=== PATIENT | male | born 1955 | race Caucasian/White ===

== ENCOUNTER 2018-05-22 16:31 | Inpatient (IN) | payer MEDICAID ==
[~2018-05-22] VITALS: Ht 182.9 cm; Wt 55.0 kg
[2018-05-22] MEDS ORDERED: SERT100T10 PO (17:20)
[2018-05-22] MEDS ORDERED: LEVE500T PO (17:21)
[2018-05-22] MEDS ORDERED: OLAN10TA3 PO (17:24)
[2018-05-22] MEDS ORDERED: ondansetron/PF 4mg/2ml inj IV ONE (17:55)
[2018-05-22 18:14] LABS: BASOPHILS # (AUTO) 0.1 X10'3 (0-0.2); BASOPHILS % (AUTO) 0.3 % (0-1); EOSINOPHILS % (AUTO) 0 % (0-6); LYMPHOCYTES # (AUTO) 0.5 X10'3 (1.1-4.8); LYMPHOCYTES % (AUTO) 2.9 % (21-51); MEAN CORPUSCULAR HEMOGLOBIN 31.3 PG (27.0-31.0); MEAN CORPUSCULAR HGB CONC 34.1 % (33.0-36.5); MEAN CORPUSCULAR VOLUME 91.7 FL (78-98); MEAN PLATELET VOLUME 8.1 FL (7.4-10.4); MONOCYTES # (AUTO) 0.8 X10'3 (0-0.9); NEUTROPHILS # (AUTO) 15.6 X10'3 (1.8-7.7); NEUTROPHILS % (AUTO) 91.8 % (42-75); PLATELET COUNT 201 X10'3 (140-440); RED BLOOD COUNT 4.47 X10'6 (4.70-6.10); RED CELL DISTRIBUTION WIDTH 12.9 % (11.5-14.5)
[2018-05-22 18:28] LABS: ALANINE AMINOTRANSFERASE 26 U/L (12-78); ALBUMIN/GLOBULIN RATIO 0.8 (1.1-1.5); ALKALINE PHOSPHATASE 175 IU/L (46-116); ANION GAP 8 (8-16); ASPARTATE AMINO TRANSFERASE 16 U/L (10-37); BILIRUBIN,TOTAL 0.7 MG/DL (0.1-1.0); BLOOD UREA NITROGEN 14 MG/DL (7-18); BUN/CREATININE RATIO 17.1 (5.4-32.0); CALCIUM 8.7 MG/DL (8.5-10.1); CHLORIDE 102 MMOL/L (99-107); CREATININE 0.82 MG/DL (0.60-1.10); GLUCOSE 125 MG/DL (70-104); POTASSIUM 3.8 MMOL/L (3.5-5.1); SODIUM 137 MMOL/L (135-145); eGFR > 90 ML/MIN
[2018-05-22] MEDS: morphine 4 MG/ML inj SYRINge IV PRN ×2 (18:28→19:16)
[2018-05-22] MEDS ORDERED: normal saline 1000ML IV soln IV ONE (18:55)
[2018-05-22] MEDS ORDERED: HYDROmorphone 1 mg/ml syringe IV ONE (19:10)
[2018-05-22] MEDS: sertraline 50mg tablet PO SCH (20:21)
[2018-05-22] MEDS: levetiracetam 250mg tablet PO SCH (20:21)
[2018-05-22] MEDS ORDERED: HYDROmorphone inj. 0.5 MG/0.5 ML DISP.SYRIN IV PRN ×2 (20:30)
[2018-05-22] MEDS ORDERED: mag hydrox/Alum hydrox/simeth 30ml oral suspension PO PRN (20:30)
[2018-05-22] MEDS ORDERED: metoclopramide 5 mg/ml inj IV PRN (20:30)
[2018-05-22] MEDS: pantoprazole 40 MG vial IV SCH (20:30)
[2018-05-22] MEDS ORDERED: acetaminophen 650mg rectal suppository RC PRN (20:30)
[2018-05-22] MEDS ORDERED: ondansetron/PF 4mg/2ml inj IV PRN (20:30)
[2018-05-22] MEDS ORDERED: diphenhydrAMINE 25mg capsule PO PRN (20:30)
[2018-05-22] MEDS ORDERED: diphenhydrAMINE 50 mg/ml inj IV PRN (20:30)
[2018-05-22] MEDS ORDERED: HYDROcodone/acetaminophen 5mg/325mg tablet PO PRN ×2 (20:30→20:50)
[2018-05-22] MEDS ORDERED: acetaminophen 325mg tablet PO PRN ×2 (20:30)
[2018-05-22] MEDS ORDERED: magnesium hydroxide 30ml (MOM) UD suspension PO PRN (20:30)
[2018-05-22] MEDS ORDERED: morphine 4 MG/ML inj SYRINge IV PRN (20:30)
[2018-05-22] MEDS ORDERED: bisacodyl 10mg suppository rectal RC PRN (20:30)
[2018-05-22 22:30] VITALS: BP 130/74
[2018-05-22] MEDS: normal saline 1000ml 1,000 ML IV SCH (23:27)
[2018-05-23 06:00] VITALS: BP 131/78
[2018-05-23 07:15] LABS: BASOPHILS # (AUTO) 0.1 X10'3 (0-0.2); BASOPHILS % (AUTO) 0.5 % (0-1); EOSINOPHILS % (AUTO) 0.1 % (0-6); HEMATOCRIT 36.6 % (42.0-52.0); HEMOGLOBIN 12.2 g/dl (14.0-17.9); LYMPHOCYTES # (AUTO) 0.9 X10'3 (1.1-4.8); LYMPHOCYTES % (AUTO) 6.6 % (21-51); MEAN CORPUSCULAR HEMOGLOBIN 30.8 PG (27.0-31.0); MEAN CORPUSCULAR HGB CONC 33.4 % (33.0-36.5); MEAN CORPUSCULAR VOLUME 92.3 FL (78-98); MONOCYTES % (AUTO) 7.7 % (2-12); NEUTROPHILS # (AUTO) 11.2 X10'3 (1.8-7.7); NEUTROPHILS % (AUTO) 85.1 % (42-75); PLATELET COUNT 196 X10'3 (140-440); RED BLOOD COUNT 3.97 X10'6 (4.70-6.10); RED CELL DISTRIBUTION WIDTH 13.2 % (11.5-14.5); WHITE BLOOD COUNT 13.2 X10'3 (4.5-11.0)
[2018-05-23 07:34] LABS: ALANINE AMINOTRANSFERASE 21 U/L (12-78); ALBUMIN 2.5 G/DL (3.4-5.0); ALBUMIN/GLOBULIN RATIO 0.7 (1.1-1.5); ALKALINE PHOSPHATASE 150 IU/L (46-116); ANION GAP 11 (8-16); ASPARTATE AMINO TRANSFERASE 13 U/L (10-37); BILIRUBIN,TOTAL 0.8 MG/DL (0.1-1.0); BLOOD UREA NITROGEN 12 MG/DL (7-18); CALCIUM 8.2 MG/DL (8.5-10.1); CHLORIDE 106 MMOL/L (99-107); GLUCOSE 106 MG/DL (70-104); POTASSIUM 3.8 MMOL/L (3.5-5.1); SODIUM 140 MMOL/L (135-145); TOTAL CARBON DIOXIDE 23.5 MMOL/L (24-32); TOTAL PROTEIN 6.2 G/DL (6.4-8.2); eGFR > 90 ML/MIN
[2018-05-23] MEDS: levetiracetam 250mg tablet PO SCH ×2 (07:44→20:04)
[2018-05-23] MEDS: pantoprazole 40 MG vial IV SCH (07:44)
[2018-05-23] MEDS: olanzapine 10mg tablet PO SCH (07:44)
[2018-05-23] MEDS: docusate sod 100mg capsule PO SCH ×2 (08:00→20:04)
[2018-05-23] MEDS: normal saline 1000ml 1,000 ML IV SCH ×3 (09:31→20:04)
[2018-05-23] MEDS: morphine 4 MG/ML inj SYRINge IV PRN (09:44)
[2018-05-23 10:00] VITALS: BP 124/69
[2018-05-23] MEDS ORDERED: LORazepam 2 mg/ml vial IV PRN (12:55)
[2018-05-23] MEDS ORDERED: ringers solution, lacted 1,000 ML IV SCH (16:04)
[2018-05-23] MEDS ORDERED: proCHLORperazine 10 MG/2 ml inj IV PRN (16:05)
[2018-05-23] MEDS ORDERED: morphine 4 MG/ML inj SYRINge IV PRN ×2 (16:05)
[2018-05-23] MEDS ORDERED: meperidine/PF 25mg/ml syringe IV PRN ×3 (16:05)
[2018-05-23] MEDS ORDERED: ondansetron/PF 4mg/2ml inj IV PRN (16:05)
[2018-05-23] MEDS: VANCOMYCIN 750MG IV in NS 250 ML IV SCH (16:18)
[2018-05-23 18:00] VITALS: BP 137/78
[2018-05-23 19:05] LABS: CLARITY,URINE CLEAR (Clear); COLOR,URINE YELLOW (Yellow); GLUCOSE, URINE NEGATIVE (Neg); KETONES,URINE >=80 mg/dl (Neg); LEUKOCYTE ESTERASE ,URINE NEGATIVE (Neg); NITRITES, URINE NEGATIVE (Neg); OCCULT BLOOD,URINE SMALL (Neg); PROTEIN,URINE TRACE mg/dl (Neg)
[2018-05-23 19:13] LABS: UA COLLECTION TYPE FOLEY CATH
[2018-05-23 19:17] LABS: BACTERIA,URINE FEW /HPF (Neg); MUCUS STRANDS FEW /LPF (Neg); SQUAMOUS EPITHELIAL CELL,UR FEW /LPF (FEW)
[2018-05-23] MEDS: piperacillin/tazo 3.375gm/50ml 50 ML IV SCH (20:03)
[2018-05-23] MEDS: tamsulosin 0.4mg capsule PO SCH (20:04)
[2018-05-23] MEDS: sertraline 50mg tablet PO SCH (20:04)
[2018-05-23 22:00] VITALS: BP 114/67
[2018-05-24] VITALS (18 sets, daily range): BP systolic 83–135; BP diastolic 44–80
[2018-05-24] MEDS: piperacillin/tazo 3.375gm/50ml 50 ML IV SCH ×4 (01:32→19:25)
[2018-05-24] MEDS: HYDROcodone/acetaminophen 10/325mg tab PO PRN (01:35)
[2018-05-24] MEDS: morphine 4 MG/ML inj SYRINge IV PRN ×2 (02:23→23:00)
[2018-05-24] MEDS: VANCOMYCIN 750MG IV in NS 250 ML IV SCH ×2 (03:44→16:00)
[2018-05-24 05:46] LABS: BASOPHILS # (AUTO) 0.1 X10'3 (0-0.2); BASOPHILS % (AUTO) 0.8 % (0-1); EOSINOPHILS % (AUTO) 0.2 % (0-6); HEMATOCRIT 33.1 % (42.0-52.0); HEMOGLOBIN 11.3 g/dl (14.0-17.9); LYMPHOCYTES # (AUTO) 1.3 X10'3 (1.1-4.8); LYMPHOCYTES % (AUTO) 9.9 % (21-51); MEAN CORPUSCULAR HEMOGLOBIN 31.1 PG (27.0-31.0); MEAN CORPUSCULAR HGB CONC 34.2 % (33.0-36.5); MEAN CORPUSCULAR VOLUME 90.8 FL (78-98); MEAN PLATELET VOLUME 8.3 FL (7.4-10.4); MONOCYTES # (AUTO) 1.1 X10'3 (0-0.9); MONOCYTES % (AUTO) 8.3 % (2-12); NEUTROPHILS # (AUTO) 10.9 X10'3 (1.8-7.7); NEUTROPHILS % (AUTO) 80.8 % (42-75); PLATELET COUNT 170 X10'3 (140-440); RED BLOOD COUNT 3.65 X10'6 (4.70-6.10); RED CELL DISTRIBUTION WIDTH 12.8 % (11.5-14.5); WHITE BLOOD COUNT 13.5 X10'3 (4.5-11.0)
[2018-05-24 06:04] LABS: ALANINE AMINOTRANSFERASE 22 U/L (12-78); ALBUMIN 2.1 G/DL (3.4-5.0); ALBUMIN/GLOBULIN RATIO 0.6 (1.1-1.5); ALKALINE PHOSPHATASE 231 IU/L (46-116); ANION GAP 12 (8-16); ASPARTATE AMINO TRANSFERASE 25 U/L (10-37); BLOOD UREA NITROGEN 6 MG/DL (7-18); BUN/CREATININE RATIO 9.5 (5.4-32.0); CALCIUM 8.2 MG/DL (8.5-10.1); CHLORIDE 104 MMOL/L (99-107); CREATININE 0.63 MG/DL (0.60-1.10); GLUCOSE 115 MG/DL (70-104); POTASSIUM 3.4 MMOL/L (3.5-5.1); SODIUM 138 MMOL/L (135-145); TOTAL CARBON DIOXIDE 22.5 MMOL/L (24-32); TOTAL PROTEIN 5.7 G/DL (6.4-8.2); eGFR > 90 ML/MIN
[2018-05-24] MEDS: docusate sod 100mg capsule PO SCH ×2 (08:00→22:59)
[2018-05-24] MEDS: pantoprazole 40 MG vial IV SCH (08:26)
[2018-05-24] MEDS: olanzapine 10mg tablet PO SCH (08:27)
[2018-05-24] MEDS: levetiracetam 250mg tablet PO SCH ×2 (08:30→22:59)
[2018-05-24] MEDS ORDERED: potassium Cl 20 mEq SR tablet PO PRN (11:10)
[2018-05-24] MEDS ORDERED: magnesium 1gm/100ml D5W IVPB 100 ML IV PRN (11:10)
[2018-05-24] MEDS ORDERED: potassium Cl 40MEQ/NS 500ml 500 ML IV PRN ×2 (11:10)
[2018-05-24] MEDS ORDERED: magnesium Cl slow-release 64mg tablet PO PRN (11:10)
[2018-05-24] MEDS ORDERED: magnesium 4gm in 100ml NS 100 ML IV PRN (11:10)
[2018-05-24] MEDS: normal saline 1000ml 1,000 ML IV SCH (11:45)
[2018-05-24 13:07] LABS: MAGNESIUM 1.9 MG/DL (1.5-2.4); POTASSIUM 3.2 MMOL/L (3.5-5.1)
[2018-05-24] MEDS ORDERED: midazolam 2 mg/2 ml injection ONE (15:56)
[2018-05-24] MEDS ORDERED: fentaNYL /PF 50mcg/ml 5ml ampule ONE (15:56)
[2018-05-24] MEDS ORDERED: LIDOcaine 2% (20mg/ml) 5ml vial ONE (15:57)
[2018-05-24] MEDS ORDERED: propofol inj 20 ML IV ONE (15:57)
[2018-05-24] MEDS ORDERED: rocuronium 10mg/ml inj IV ONE (15:57)
[2018-05-24] MEDS ORDERED: metoprolol tartrate 1mg/ml inj IV ONE (16:00)
[2018-05-24] MEDS ORDERED: sevoflurane 250ml liquid IH ONE (16:00)
[2018-05-24] MEDS ORDERED: fentaNYL/PF 50MCG/1 ML 2ML syringe ONE (17:38)
[2018-05-24] MEDS ORDERED: ondansetron/PF 4mg/2ml inj ONE (18:11)
[2018-05-24] MEDS ORDERED: morphine 10mg/ml inj. ONE (18:16)
[2018-05-24] MEDS ORDERED: albumin (Human) 5% 250ml 250 ML IV ONE (18:56)
[2018-05-24] MEDS ORDERED: neostigmine methylsulfate 1 MG/ML 10ml vial ONE (19:11)
[2018-05-24] MEDS ORDERED: glycopyrrolate 0.2mg/ml inj ONE (19:11)
[2018-05-24 19:15] LABS: ISTAT ANION GAP 13 (8-12); ISTAT BUN 4 mg/dL (6-19); ISTAT CL 104 mmol/L (99-107); ISTAT CREATININE 0.4 mg/dL (0.8-1.3); ISTAT GLUCOSE 135 mg/dL (70-104); ISTAT HGB 10.2 g/dl (14.0-18.0); ISTAT Hct 30 %PCV (42-52); ISTAT IONIZED CALCIUM 1.17 mmol/L (1.03-1.32); ISTAT K 3.7 mmol/L (3.5-5.1); ISTAT NA 140 mmol/L (135-145); ISTAT TOTAL CO2 23 mmol/L (24-32); ISTAT eGFR > 90 ML/MIN
[2018-05-24] MEDS: tamsulosin 0.4mg capsule PO SCH ×2 (21:00→23:00)
[2018-05-24] MEDS: lactobacillus rhamnosus 10,000 MMU CELLS/CAPSULE PO SCH (22:59)
[2018-05-24] MEDS: sertraline 50mg tablet PO SCH (22:59)
[2018-05-25] MEDS: HYDROcodone/acetaminophen 10/325mg tab PO PRN ×4 (00:36→19:42)
[2018-05-25] MEDS: normal saline 1000ml 1,000 ML IV SCH ×3 (00:36→21:13)
[2018-05-25] MEDS: temazepam 15mg capsule PO PRN (00:36)
[2018-05-25] MEDS: piperacillin/tazo 3.375gm/50ml 50 ML IV SCH ×4 (02:17→19:41)
[2018-05-25 02:30] VITALS: BP 117/71
[2018-05-25] MEDS ORDERED: VANCOMYCIN LEVEL IV NR (03:30)
[2018-05-25 04:05] LABS: BASOPHILS # (AUTO) 0.1 X10'3 (0-0.2); BASOPHILS % (AUTO) 0.5 % (0-1); EOSINOPHILS # (AUTO) 0.1 X10'3 (0-0.9); EOSINOPHILS % (AUTO) 1.2 % (0-6); HEMATOCRIT 28.4 % (42.0-52.0); HEMOGLOBIN 9.6 g/dl (14.0-17.9); LYMPHOCYTES % (AUTO) 8.8 % (21-51); MEAN CORPUSCULAR HEMOGLOBIN 31.3 PG (27.0-31.0); MEAN CORPUSCULAR HGB CONC 33.8 % (33.0-36.5); MEAN CORPUSCULAR VOLUME 92.4 FL (78-98); MEAN PLATELET VOLUME 7.6 FL (7.4-10.4); MONOCYTES # (AUTO) 1.2 X10'3 (0-0.9); MONOCYTES % (AUTO) 10.5 % (2-12); NEUTROPHILS # (AUTO) 9.1 X10'3 (1.8-7.7); PLATELET COUNT 199 X10'3 (140-440); RED BLOOD COUNT 3.07 X10'6 (4.70-6.10); WHITE BLOOD COUNT 11.6 X10'3 (4.5-11.0)
[2018-05-25 04:21] LABS: ALANINE AMINOTRANSFERASE 17 U/L (12-78); ALBUMIN 2.1 G/DL (3.4-5.0); ALBUMIN/GLOBULIN RATIO 0.6 (1.1-1.5); ALKALINE PHOSPHATASE 202 IU/L (46-116); ANION GAP 9 (8-16); ASPARTATE AMINO TRANSFERASE 17 U/L (10-37); BILIRUBIN,TOTAL 0.7 MG/DL (0.1-1.0); BLOOD UREA NITROGEN 4 MG/DL (7-18); BUN/CREATININE RATIO 6.8 (5.4-32.0); CHLORIDE 103 MMOL/L (99-107); CREATININE 0.59 MG/DL (0.60-1.10); GLUCOSE 107 MG/DL (70-104); MAGNESIUM 1.7 MG/DL (1.5-2.4); POTASSIUM 3.4 MMOL/L (3.5-5.1); SODIUM 138 MMOL/L (135-145); TOTAL PROTEIN 5.4 G/DL (6.4-8.2); VANCOMYCIN,TROUGH 3.9 UG/ML (6.0-14.0); eGFR > 90 ML/MIN
[2018-05-25] MEDS: VANCOMYCIN 750MG IV in NS 250 ML IV SCH ×2 (04:32→16:06)
[2018-05-25 06:00] VITALS: BP 117/71
[2018-05-25] MEDS: pantoprazole 40mg Tablet.DR PO SCH (07:14)
[2018-05-25] MEDS: olanzapine 10mg tablet PO SCH (07:14)
[2018-05-25] MEDS: levetiracetam 250mg tablet PO SCH ×2 (07:14→19:41)
[2018-05-25] MEDS: lactobacillus rhamnosus 10,000 MMU CELLS/CAPSULE PO SCH ×2 (07:14→19:41)
[2018-05-25] MEDS: docusate sod 100mg capsule PO SCH ×2 (07:14→19:42)
[2018-05-25] MEDS: potassium Cl 20 mEq SR tablet PO PRN ×3 (07:15→16:06)
[2018-05-25 10:00] VITALS: BP 99/56
[2018-05-25 14:00] VITALS: BP 116/75
[2018-05-25] MEDS: tamsulosin 0.4mg capsule PO SCH ×2 (19:41→19:42)
[2018-05-25] MEDS: sertraline 50mg tablet PO SCH (19:42)
[2018-05-25 22:00] VITALS: BP 102/51
[2018-05-26] MEDS: piperacillin/tazo 3.375gm/50ml 50 ML IV SCH ×4 (02:08→20:12)
[2018-05-26 06:00] VITALS: BP 96/40
[2018-05-26] MEDS: normal saline 1000ml 1,000 ML IV SCH ×2 (07:28→20:21)
[2018-05-26] MEDS: HYDROcodone/acetaminophen 10/325mg tab PO PRN ×4 (07:30→20:14)
[2018-05-26] MEDS: lactobacillus rhamnosus 10,000 MMU CELLS/CAPSULE PO SCH ×2 (07:30→20:12)
[2018-05-26] MEDS: pantoprazole 40mg Tablet.DR PO SCH (07:31)
[2018-05-26] MEDS: olanzapine 10mg tablet PO SCH (07:31)
[2018-05-26] MEDS: docusate sod 100mg capsule PO SCH ×2 (07:31→20:12)
[2018-05-26] MEDS: levetiracetam 250mg tablet PO SCH ×2 (07:31→20:21)
[2018-05-26 10:00] VITALS: BP 114/60
[2018-05-26 12:27] LABS: BASOPHILS % (AUTO) 0.1 % (0-1); EOSINOPHILS # (AUTO) 0.1 X10'3 (0-0.9); EOSINOPHILS % (AUTO) 0.7 % (0-6); HEMATOCRIT 27.7 % (42.0-52.0); HEMOGLOBIN 9.4 g/dl (14.0-17.9); LYMPHOCYTES # (AUTO) 0.9 X10'3 (1.1-4.8); LYMPHOCYTES % (AUTO) 9.5 % (21-51); MEAN CORPUSCULAR HEMOGLOBIN 30.8 PG (27.0-31.0); MEAN CORPUSCULAR HGB CONC 33.7 % (33.0-36.5); MEAN CORPUSCULAR VOLUME 91.3 FL (78-98); MEAN PLATELET VOLUME 7.8 FL (7.4-10.4); MONOCYTES % (AUTO) 10.1 % (2-12); NEUTROPHILS # (AUTO) 7.8 X10'3 (1.8-7.7); NEUTROPHILS % (AUTO) 79.6 % (42-75); PLATELET COUNT 261 X10'3 (140-440); RED BLOOD COUNT 3.03 X10'6 (4.70-6.10); WHITE BLOOD COUNT 9.8 X10'3 (4.5-11.0)
[2018-05-26 12:44] LABS: ALANINE AMINOTRANSFERASE 16 U/L (12-78); ALBUMIN 1.8 G/DL (3.4-5.0); ALBUMIN/GLOBULIN RATIO 0.5 (1.1-1.5); ALKALINE PHOSPHATASE 246 IU/L (46-116); ANION GAP 5 (8-16); ASPARTATE AMINO TRANSFERASE 16 U/L (10-37); BILIRUBIN,TOTAL 0.5 MG/DL (0.1-1.0); BLOOD UREA NITROGEN 4 MG/DL (7-18); CALCIUM 7.9 MG/DL (8.5-10.1); CHLORIDE 106 MMOL/L (99-107); CREATININE 0.57 MG/DL (0.60-1.10); GLUCOSE 117 MG/DL (70-104); MAGNESIUM 1.8 MG/DL (1.5-2.4); POTASSIUM 3.4 MMOL/L (3.5-5.1); SODIUM 140 MMOL/L (135-145); TOTAL CARBON DIOXIDE 28.7 MMOL/L (24-32); TOTAL PROTEIN 5.4 G/DL (6.4-8.2); eGFR > 90 ML/MIN
[2018-05-26] MEDS ORDERED: VANCOMYCIN LEVEL IV ONE (15:30)
[2018-05-26 18:00] VITALS: BP 114/63
[2018-05-26] MEDS: sertraline 50mg tablet PO SCH (20:12)
[2018-05-26] MEDS: potassium Cl 20 mEq SR tablet PO PRN (20:13)
[2018-05-26] MEDS: tamsulosin 0.4mg capsule PO SCH ×2 (20:13→20:21)
[2018-05-26 22:00] VITALS: BP 135/77
[2018-05-27] MEDS: piperacillin/tazo 3.375gm/50ml 50 ML IV SCH ×3 (01:08→13:23)
[2018-05-27] MEDS: potassium Cl 20 mEq SR tablet PO PRN (01:08)
[2018-05-27] MEDS: HYDROcodone/acetaminophen 10/325mg tab PO PRN ×2 (05:13→10:21)
[2018-05-27] MEDS: normal saline 1000ml 1,000 ML IV SCH ×3 (05:15→22:01)
[2018-05-27 06:00] VITALS: BP 100/64
[2018-05-27 06:13] LABS: BASOPHILS # (AUTO) 0.1 X10'3 (0-0.2); BASOPHILS % (AUTO) 0.7 % (0-1); EOSINOPHILS # (AUTO) 0.3 X10'3 (0-0.9); EOSINOPHILS % (AUTO) 3.2 % (0-6); HEMATOCRIT 26.4 % (42.0-52.0); HEMOGLOBIN 8.8 g/dl (14.0-17.9); LYMPHOCYTES # (AUTO) 1.3 X10'3 (1.1-4.8); LYMPHOCYTES % (AUTO) 12.8 % (21-51); MEAN CORPUSCULAR HEMOGLOBIN 30.5 PG (27.0-31.0); MEAN CORPUSCULAR HGB CONC 33.2 % (33.0-36.5); MEAN CORPUSCULAR VOLUME 91.9 FL (78-98); MEAN PLATELET VOLUME 7.2 FL (7.4-10.4); MONOCYTES # (AUTO) 0.9 X10'3 (0-0.9); MONOCYTES % (AUTO) 9.1 % (2-12); NEUTROPHILS # (AUTO) 7.4 X10'3 (1.8-7.7); NEUTROPHILS % (AUTO) 74.2 % (42-75); PLATELET COUNT 269 X10'3 (140-440); RED BLOOD COUNT 2.87 X10'6 (4.70-6.10); RED CELL DISTRIBUTION WIDTH 13.1 % (11.5-14.5)
[2018-05-27 06:31] LABS: ALANINE AMINOTRANSFERASE 19 U/L (12-78); ALBUMIN 1.7 G/DL (3.4-5.0); ALBUMIN/GLOBULIN RATIO 0.5 (1.1-1.5); ALKALINE PHOSPHATASE 350 IU/L (46-116); ANION GAP 6 (8-16); ASPARTATE AMINO TRANSFERASE 16 U/L (10-37); BILIRUBIN,TOTAL 0.4 MG/DL (0.1-1.0); BLOOD UREA NITROGEN 6 MG/DL (7-18); BUN/CREATININE RATIO 9.8 (5.4-32.0); CALCIUM 8.1 MG/DL (8.5-10.1); CHLORIDE 107 MMOL/L (99-107); CREATININE 0.61 MG/DL (0.60-1.10); GLUCOSE 113 MG/DL (70-104); MAGNESIUM 1.8 MG/DL (1.5-2.4); POTASSIUM 3.5 MMOL/L (3.5-5.1); SODIUM 142 MMOL/L (135-145); TOTAL CARBON DIOXIDE 28.6 MMOL/L (24-32); TOTAL PROTEIN 5.2 G/DL (6.4-8.2); eGFR > 90 ML/MIN
[2018-05-27] MEDS: olanzapine 10mg tablet PO SCH (07:15)
[2018-05-27] MEDS: levetiracetam 250mg tablet PO SCH ×2 (07:15→20:24)
[2018-05-27] MEDS: pantoprazole 40mg Tablet.DR PO SCH (07:15)
[2018-05-27] MEDS: lactobacillus rhamnosus 10,000 MMU CELLS/CAPSULE PO SCH ×2 (07:15→20:24)
[2018-05-27] MEDS: docusate sod 100mg capsule PO SCH ×2 (07:15→20:24)
[2018-05-27 10:00] VITALS: BP 125/69
[2018-05-27] MEDS: amox tr/potassium clavulanate 500mg/125mg TAB PO SCH (17:51)
[2018-05-27 18:00] VITALS: BP 136/76
[2018-05-27] MEDS: lactose-reduced food (Ensure High Protein) 237ml bottle PO SCH (18:00)
[2018-05-27] MEDS: tamsulosin 0.4mg capsule PO SCH ×2 (20:24)
[2018-05-27] MEDS: sertraline 50mg tablet PO SCH (20:24)
[2018-05-27 22:00] VITALS: BP 117/62
[2018-05-28] MEDS: normal saline 1000ml 1,000 ML IV SCH ×2 (04:32→18:01)
[2018-05-28] MEDS: HYDROcodone/acetaminophen 10/325mg tab PO PRN ×3 (05:18→19:46)
[2018-05-28 06:00] VITALS: BP 121/65
[2018-05-28] MEDS: pantoprazole 40mg Tablet.DR PO SCH (07:30)
[2018-05-28] MEDS: lactose-reduced food (Ensure High Protein) 237ml bottle PO SCH ×3 (08:00→18:00)
[2018-05-28] MEDS: olanzapine 10mg tablet PO SCH (08:00)
[2018-05-28] MEDS: docusate sod 100mg capsule PO SCH ×2 (08:00→19:46)
[2018-05-28] MEDS: levetiracetam 250mg tablet PO SCH ×2 (08:00→19:44)
[2018-05-28] MEDS: lactobacillus rhamnosus 10,000 MMU CELLS/CAPSULE PO SCH ×2 (08:00→19:44)
[2018-05-28] MEDS: amox tr/potassium clavulanate 500mg/125mg TAB PO SCH ×2 (08:30→17:22)
[2018-05-28 10:00] VITALS: BP 119/75
[2018-05-28] MEDS: Protein Smoothie (high protein) 240ml (8oz) cup PO SCH ×2 (13:00→18:00)
[2018-05-28 18:00] VITALS: BP 155/93
[2018-05-28] MEDS: tamsulosin 0.4mg capsule PO SCH (19:44)
[2018-05-28] MEDS: sertraline 50mg tablet PO SCH (19:44)
[2018-05-28 22:00] VITALS: BP 120/66
[2018-05-28] MEDS: temazepam 15mg capsule PO PRN (22:57)
[2018-05-29] MEDS: normal saline 1000ml 1,000 ML IV SCH ×2 (04:01→14:01)
[2018-05-29] MEDS: HYDROcodone/acetaminophen 10/325mg tab PO PRN ×4 (05:50→20:15)
[2018-05-29 06:00] VITALS: BP 106/59
[2018-05-29] MEDS: pantoprazole 40mg Tablet.DR PO SCH (07:30)
[2018-05-29] MEDS: lactose-reduced food (Ensure High Protein) 237ml bottle PO SCH ×3 (07:49→18:00)
[2018-05-29] MEDS: docusate sod 100mg capsule PO SCH ×2 (08:00→20:16)
[2018-05-29] MEDS: olanzapine 10mg tablet PO SCH (08:00)
[2018-05-29] MEDS: lactobacillus rhamnosus 10,000 MMU CELLS/CAPSULE PO SCH ×2 (08:00→20:16)
[2018-05-29] MEDS: levetiracetam 250mg tablet PO SCH ×2 (08:00→20:16)
[2018-05-29] MEDS: amox tr/potassium clavulanate 500mg/125mg TAB PO SCH ×2 (08:05→17:30)
[2018-05-29 10:00] VITALS: BP 122/64
[2018-05-29 17:00] VITALS: BP 120/74
[2018-05-29] MEDS: Protein Smoothie (high protein) 240ml (8oz) cup PO SCH (18:00)
[2018-05-29] MEDS: sertraline 50mg tablet PO SCH (20:16)
[2018-05-29] MEDS: tamsulosin 0.4mg capsule PO SCH (20:16)
[2018-05-29 22:00] VITALS: BP 122/61
[2018-05-30] MEDS: normal saline 1000ml 1,000 ML IV SCH ×3 (00:01→18:28)
[2018-05-30] MEDS: HYDROcodone/acetaminophen 10/325mg tab PO PRN ×4 (01:29→20:01)
[2018-05-30] MEDS: temazepam 15mg capsule PO PRN (01:32)
[2018-05-30 06:00] VITALS: BP 117/66
[2018-05-30] MEDS: Protein Smoothie (high protein) 240ml (8oz) cup PO SCH ×3 (08:00→18:42)
[2018-05-30] MEDS: lactose-reduced food (Ensure High Protein) 237ml bottle PO SCH ×3 (08:00→18:41)
[2018-05-30] MEDS: docusate sod 100mg capsule PO SCH ×2 (08:03→20:00)
[2018-05-30] MEDS: lactobacillus rhamnosus 10,000 MMU CELLS/CAPSULE PO SCH ×2 (08:03→20:00)
[2018-05-30] MEDS: amox tr/potassium clavulanate 500mg/125mg TAB PO SCH ×2 (08:03→17:26)
[2018-05-30] MEDS: levetiracetam 250mg tablet PO SCH ×2 (08:03→20:00)
[2018-05-30] MEDS: olanzapine 10mg tablet PO SCH (08:03)
[2018-05-30] MEDS: pantoprazole 40mg Tablet.DR PO SCH (08:03)
[2018-05-30 10:00] VITALS: BP 111/68
[2018-05-30 18:00] VITALS: BP 119/62
[2018-05-30] MEDS: tamsulosin 0.4mg capsule PO SCH (20:00)
[2018-05-30] MEDS: sertraline 50mg tablet PO SCH (20:00)
[2018-05-30 22:00] VITALS: BP 93/42
[2018-05-31] MEDS: normal saline 1000ml 1,000 ML IV SCH ×2 (03:43→12:58)
[2018-05-31 06:00] VITALS: BP 114/64
[2018-05-31] MEDS: pantoprazole 40mg Tablet.DR PO SCH (08:00)
[2018-05-31] MEDS: Protein Smoothie (high protein) 240ml (8oz) cup PO SCH ×3 (08:00→18:52)
[2018-05-31] MEDS: lactose-reduced food (Ensure High Protein) 237ml bottle PO SCH ×3 (08:00→18:52)
[2018-05-31] MEDS: HYDROcodone/acetaminophen 10/325mg tab PO PRN ×2 (08:00→21:02)
[2018-05-31] MEDS: levetiracetam 250mg tablet PO SCH ×2 (08:01→21:01)
[2018-05-31] MEDS: lactobacillus rhamnosus 10,000 MMU CELLS/CAPSULE PO SCH ×2 (08:06→21:01)
[2018-05-31] MEDS: docusate sod 100mg capsule PO SCH ×2 (08:06→21:01)
[2018-05-31] MEDS: amox tr/potassium clavulanate 500mg/125mg TAB PO SCH ×2 (08:06→17:48)
[2018-05-31] MEDS: olanzapine 10mg tablet PO SCH (08:07)
[2018-05-31 10:00] VITALS: BP 112/62
[2018-05-31] MEDS ORDERED: LORazepam 2 mg/ml vial IV PRN (11:20)
[2018-05-31 18:00] VITALS: BP 134/77
[2018-05-31] MEDS: sertraline 50mg tablet PO SCH (21:00)
[2018-05-31] MEDS: tamsulosin 0.4mg capsule PO SCH (21:01)
[2018-06-01] MEDS: HYDROcodone/acetaminophen 10/325mg tab PO PRN ×3 (05:19→23:26)
[2018-06-01] MEDS: normal saline 1000ml 1,000 ML IV SCH (05:30)
[2018-06-01 06:00] VITALS: BP 121/101
[2018-06-01] MEDS: docusate sod 100mg capsule PO SCH ×2 (07:07→19:48)
[2018-06-01] MEDS: levetiracetam 250mg tablet PO SCH ×2 (07:07→19:48)
[2018-06-01] MEDS: lactobacillus rhamnosus 10,000 MMU CELLS/CAPSULE PO SCH ×2 (07:07→19:48)
[2018-06-01] MEDS: olanzapine 10mg tablet PO SCH (07:07)
[2018-06-01] MEDS: pantoprazole 40mg Tablet.DR PO SCH (07:07)
[2018-06-01] MEDS: amox tr/potassium clavulanate 500mg/125mg TAB PO SCH (07:07)
[2018-06-01] MEDS: Protein Smoothie (high protein) 240ml (8oz) cup PO SCH ×3 (08:00→18:00)
[2018-06-01] MEDS: lactose-reduced food (Ensure High Protein) 237ml bottle PO SCH ×3 (08:00→18:00)
[2018-06-01 10:00] VITALS: BP 123/73
[2018-06-01 18:00] VITALS: BP 107/64
[2018-06-01] MEDS: ibuprofen 200mg tablet PO PRN (19:48)
[2018-06-01] MEDS: tamsulosin 0.4mg capsule PO SCH (20:50)
[2018-06-01] MEDS: sertraline 50mg tablet PO SCH (20:50)
[2018-06-01 22:00] VITALS: BP 132/67
[2018-06-02] MEDS: normal saline 1000ml 1,000 ML IV SCH ×2 (01:08→20:00)
[2018-06-02] MEDS: ibuprofen 200mg tablet PO PRN (02:18)
[2018-06-02 06:00] VITALS: BP 127/69
[2018-06-02] MEDS: Protein Smoothie (high protein) 240ml (8oz) cup PO SCH ×3 (08:00→18:51)
[2018-06-02] MEDS: lactose-reduced food (Ensure High Protein) 237ml bottle PO SCH ×3 (08:00→18:51)
[2018-06-02 08:16] LABS: BASOPHILS # (AUTO) 0.1 X10'3 (0-0.2); BASOPHILS % (AUTO) 0.7 % (0-1); EOSINOPHILS # (AUTO) 0.2 X10'3 (0-0.9); EOSINOPHILS % (AUTO) 2.4 % (0-6); HEMATOCRIT 29.7 % (42.0-52.0); HEMOGLOBIN 9.9 g/dl (14.0-17.9); LYMPHOCYTES # (AUTO) 1.8 X10'3 (1.1-4.8); LYMPHOCYTES % (AUTO) 17.8 % (21-51); MEAN CORPUSCULAR HEMOGLOBIN 30.3 PG (27.0-31.0); MEAN CORPUSCULAR HGB CONC 33.3 % (33.0-36.5); MEAN CORPUSCULAR VOLUME 90.9 FL (78-98); MEAN PLATELET VOLUME 6.7 FL (7.4-10.4); MONOCYTES # (AUTO) 0.6 X10'3 (0-0.9); MONOCYTES % (AUTO) 6.2 % (2-12); NEUTROPHILS # (AUTO) 7.2 X10'3 (1.8-7.7); NEUTROPHILS % (AUTO) 72.9 % (42-75); PLATELET COUNT 849 X10'3 (140-440); RED BLOOD COUNT 3.26 X10'6 (4.70-6.10); RED CELL DISTRIBUTION WIDTH 12.9 % (11.5-14.5); WHITE BLOOD COUNT 9.9 X10'3 (4.5-11.0)
[2018-06-02 08:26] LABS: ALBUMIN 2.2 G/DL (3.4-5.0); ANION GAP 6 (8-16); BLOOD UREA NITROGEN 10 MG/DL (7-18); BUN/CREATININE RATIO 16.1 (5.4-32.0); CALCIUM 8.3 MG/DL (8.5-10.1); CHLORIDE 109 MMOL/L (99-107); CREATININE 0.62 MG/DL (0.60-1.10); GLUCOSE 119 MG/DL (70-104); POTASSIUM 3.3 MMOL/L (3.5-5.1); SODIUM 142 MMOL/L (135-145); TOTAL CARBON DIOXIDE 26.7 MMOL/L (24-32); eGFR > 90 ML/MIN
[2018-06-02 08:50] LABS: LARGE PLATELETS FEW; PLATELET ESTIMATE INCREASED
[2018-06-02] MEDS: olanzapine 10mg tablet PO SCH (09:04)
[2018-06-02] MEDS: levetiracetam 250mg tablet PO SCH ×2 (09:04→19:54)
[2018-06-02] MEDS: docusate sod 100mg capsule PO SCH ×2 (09:04→19:54)
[2018-06-02] MEDS: pantoprazole 40mg Tablet.DR PO SCH (09:04)
[2018-06-02] MEDS: lactobacillus rhamnosus 10,000 MMU CELLS/CAPSULE PO SCH ×2 (09:04→19:53)
[2018-06-02 10:00] VITALS: BP 114/68
[2018-06-02 18:00] VITALS: BP 120/70
[2018-06-02] MEDS: tamsulosin 0.4mg capsule PO SCH (19:53)
[2018-06-02] MEDS: sertraline 50mg tablet PO SCH (19:54)
[2018-06-02] MEDS: HYDROcodone/acetaminophen 10/325mg tab PO PRN (19:55)
[2018-06-02 22:00] VITALS: BP 142/79
[2018-06-03 06:00] VITALS: BP 118/62
[2018-06-03 06:36] LABS: PREALBUMIN 13.4 MG/DL (19-36)
[2018-06-03] MEDS: Protein Smoothie (high protein) 240ml (8oz) cup PO SCH ×3 (08:00→18:00)
[2018-06-03] MEDS: lactose-reduced food (Ensure High Protein) 237ml bottle PO SCH ×3 (08:00→18:00)
[2018-06-03] MEDS: levetiracetam 250mg tablet PO SCH ×2 (08:46→19:22)
[2018-06-03] MEDS: docusate sod 100mg capsule PO SCH ×2 (08:46→19:24)
[2018-06-03] MEDS: pantoprazole 40mg Tablet.DR PO SCH (08:46)
[2018-06-03] MEDS: lactobacillus rhamnosus 10,000 MMU CELLS/CAPSULE PO SCH ×2 (08:46→19:22)
[2018-06-03] MEDS: olanzapine 10mg tablet PO SCH (08:47)
[2018-06-03] MEDS: HYDROcodone/acetaminophen 5mg/325mg tablet PO PRN ×2 (08:47→17:58)
[2018-06-03 10:00] VITALS: BP 162/91
[2018-06-03] MEDS: normal saline 1000ml 1,000 ML IV SCH (16:00)
[2018-06-03 18:00] VITALS: BP 126/84
[2018-06-03] MEDS: tamsulosin 0.4mg capsule PO SCH (19:22)
[2018-06-03] MEDS: sertraline 50mg tablet PO SCH (19:22)
[2018-06-03 22:00] VITALS: BP 134/74
[2018-06-04] MEDS: temazepam 15mg capsule PO PRN (00:29)
[2018-06-04 06:00] VITALS: BP 118/68
[2018-06-04] MEDS: docusate sod 100mg capsule PO SCH (07:47)
[2018-06-04] MEDS: pantoprazole 40mg Tablet.DR PO SCH (07:47)
[2018-06-04] MEDS: lactobacillus rhamnosus 10,000 MMU CELLS/CAPSULE PO SCH (07:49)
[2018-06-04] MEDS: levetiracetam 250mg tablet PO SCH (07:50)
[2018-06-04] MEDS: olanzapine 10mg tablet PO SCH (07:51)
[2018-06-04] MEDS: HYDROcodone/acetaminophen 10/325mg tab PO PRN (07:55)
[2018-06-04] MEDS: lactose-reduced food (Ensure High Protein) 237ml bottle PO SCH ×2 (07:57→12:32)
[2018-06-04] MEDS: Protein Smoothie (high protein) 240ml (8oz) cup PO SCH ×2 (07:57→12:32)
[2018-06-04 10:00] VITALS: BP 123/72
[2018-06-04] MEDS: normal saline 1000ml 1,000 ML IV SCH (11:52)
[2018-06-04] MEDS: HYDROcodone/acetaminophen 5mg/325mg tablet PO PRN (12:23)
[2018-06-04] MEDS ORDERED: potassium Cl 20 mEq SR tablet PO STA (12:40)
[2018-06-04] MEDS ORDERED: megestrol acetate 400mg/10ml UD oral suspension PO SCH (20:00)
== END 2018-06-04 13:18 | disposition home or self-care (01) | DRG 315 ==
LOC: ER 16:33 → ED HOLD 20:27 → ORTHO 4S 22:30
PROVIDERS: ADMIT Family Medicine; ATTEND Urology
PROC: 2W39X1Z Immobilization of Left Upper Extremity using Splint (ICD-10-PCS; 2018-05-22)
PROC: 0PSD04Z Reposition Left Humeral Head with Internal Fixation Device, Open Approach (ICD-10-PCS; principal; 2018-05-24 16:00)
DX: S42.212A Unspecified displaced fracture of surgical neck of left humerus, initial encounter for closed fracture (principal); R78.81 Bacteremia; I10 Essential (primary) hypertension; F12.90 Cannabis use, unspecified, uncomplicated; G89.29 Other chronic pain; N39.41 Urge incontinence; R33.9 Retention of urine, unspecified; F81.9 Developmental disorder of scholastic skills, unspecified; R31.9 Hematuria, unspecified; E87.6 Hypokalemia; B95.7 Other staphylococcus as the cause of diseases classified elsewhere; D64.9 Anemia, unspecified; W18.39XA Other fall on same level, initial encounter; Y93.89 Activity, other specified; Y92.89 Other specified places as the place of occurrence of the external cause; Y99.8 Other external cause status; Z86.73 Personal history of transient ischemic attack (TIA), and cerebral infarction without residual deficits; Z79.899 Other long term (current) drug therapy
CPT/HCPCS: 36415; 71045; 73030; 73080; 76000; 80047; 80048; 80053; 80202; 81001; 83605; 83735; 84132; 84134; 84145; 84443; 85025; 86885; 86900; 86901; 86920; 87040; 87070; 87077; 87088; 87186; 93005; 96374; 96375; 97110; 97162; 97530; 97535; 99285; A4315; A4353; A4565; A6209; A6212; A6213; A6223; A6449; A7000; C1713; C9113; J1170; J2001; J2060; J2250; J2270; J2405; J2543; J2704; J2710; J3010; J3370; J3480; J3490; J7030; J7120; P9045